=== PATIENT | female | born 1995 | race Two or more races ===

== ENCOUNTER 2019-04-11 10:51 | Emergency (ER) | payer OTHER ==
[~2019-04-11] VITALS: Ht 165.1 cm; Wt 65.8 kg
== END 2019-04-11 12:55 | disposition home or self-care (01) ==
LOC: ER 10:51
DX: S90.811A Abrasion, right foot, initial encounter (principal); W22.09XA Striking against other stationary object, initial encounter; Y93.01 Activity, walking, marching and hiking; Y92.89 Other specified places as the place of occurrence of the external cause; Y99.8 Other external cause status

== ENCOUNTER 2022-03-07 14:16 | Emergency (ER) | payer OTHER ==
[~2022-03-07] VITALS: Ht 165.1 cm; Wt 72.6 kg
[2022-03-07] MEDS ORDERED: AMOX-CLAV 875-1 EACH PO (18:07)
== END 2022-03-07 18:54 | disposition home or self-care (01) ==
LOC: ER 14:16
DX: J03.90 Acute tonsillitis, unspecified (principal); Z20.822 Contact with and (suspected) exposure to COVID-19

== ENCOUNTER 2023-12-16 17:53 | Emergency (ER) | payer OTHER ==
[~2023-12-16] VITALS: Ht 165.1 cm; Wt 70.3 kg
[~2023-12-16 17:53] MED LIST: AMOX-CLAV 875-1 EACH PO; NASAL MIST126 ML
[2023-12-16] MEDS ORDERED: KETOROLAC TROMETHAMINE 60 MG VIAL IM ONE (19:30)
[2023-12-16 19:56] LABS: PH,URINE 5.5 (5.0-8.0); URINE APPEARANCE Clear; URINE BILIRRUBIN Negative (NEGATIVE); URINE BLOOD Negative; URINE COLOR Yellow; URINE GLUCOSE Negative (NEGATIVE); URINE KETONE Negative (NEGATIVE); URINE LEUKOCYTE Negative; URINE NITRATE Negative; URINE PROTEIN Negative (NEGATIVE); URINE UROBILINOGEN 0.2 E.U./dl
[2023-12-16 19:58] LABS: HEMATOCRIT 36.9 % (36.0-45.00); HEMOGLOBIN 12.6 g/dL (12.0-15.00); MEAN CELL VOLUME 85.6 fL (80.00-100.00); MEAN CORPUSCULAR HEMOGLOBIN 29.1 pg (27.00-32.0); PLATELET COUNT 405 K/uL (150-450); RED BLOOD COUNT 4.31 M/uL (4.00-6.00); RED CELL DISTRIBUTION WIDTH 12.6 % (11.5-14.5)
[2023-12-16 20:00] LABS: URINE BACTERIA 1720.7 uL (0.0-1933); URINE EPITHELIAL CELLS 17.6 uL (0.0-38.8); URINE RBC 24.8 uL (0.0-20.8); URINE WBC 8.8 uL (0.0-23.2)
[2023-12-16 20:04] LABS: URINE CAST 0.15 uL (0.0-1.40)
[2023-12-16 20:44] LABS: ALT/SGPT 27 U/L (12-78); AMYLASE 64 U/L (25-115); AST/SGOT 21 U/L (15-37); LIPASE 44 U/L (13-75)
[2023-12-16 21:24] LABS: ALBUMIN 4.1 gm/dL (3.4-5.0); BILIRUBIN TOTAL 0.23 mg/dL (0.3-1.2); CALCIUM 9.5 mg/dL (8.5-10.1); CREATININE SERUM 0.79 mg/dL (0.55-1.02); GFR 86.04; GLOBULINA 4.3 G/DL (2.4-3.5); POTASSIUM 3.72 mEq/L (3.5-5.1); TOTAL PROTEIN 8.4 gm/dL (6.4-8.2)
[2023-12-17] MEDS ORDERED: MIRALAX510 GM PO (01:26)
[2023-12-17] MEDS ORDERED: LEVSIN/SL0.125 MG SL (01:26)
== END 2023-12-17 01:50 ==
LOC: ER 17:55
PROVIDERS: Preventive Medicine Public Health & General Preventive Medicine
DX: R10.11 Right upper quadrant pain (principal)
CPT/HCPCS: 36415; 74177; 76700; Q9965

== ENCOUNTER 2024-12-29 07:21 | Emergency (ER) | payer OTHER ==
[~2024-12-29] VITALS: Ht 165.1 cm; Wt 68.0 kg
[~2024-12-29 07:21] MED LIST changes: +LEVSIN/SL0.125 MG SL; +MIRALAX510 GM PO
[2024-12-29] MEDS ORDERED: KETOROLAC TROMETHAMINE 30 MG VIAL IU STA (08:50)
[2024-12-29] MEDS ORDERED: PROMETHAZINE HCL 25 MG/ML AMPUL IM STA (08:51)
[2024-12-29] MEDS ORDERED: 0.9 % SODIUM CHLORIDE 1,000 ML IV SCH (09:00)
[2024-12-29] MEDS ORDERED: PROMETHAZINE HCL 25 MG/ML AMPUL ONE (09:33)
[2024-12-29] MEDS ORDERED: KETOROLAC TROMETHAMINE 30 MG VIAL ONE (09:33)
[2024-12-29 09:41] LABS: BASO % 0.4 % (0.1-1.2); EOS # 0.03 (0.04-0.54); EOS % 0.6 % (0.7-7.0); LYMPH # 1.48 (1.18-3.74); LYMPH % 27.9 % (19.3-53.1); MEAN PLATELET VOLUME 9.60 fl (9.4-12.4); MONO # 0.36 (0.24-0.82); MONO % 6.8 % (4.7-12.5); NEUT # 3.40 (1.56-6.13); NEUT % 63.9 % (34.0-71.1); RED CELL DISTRIBUTION WIDTH 11.9 % (11.6-14.4)
[2024-12-29 09:54] LABS: URINE APPEARANCE Clear; URINE BILIRRUBIN Negative (NEGATIVE); URINE BLOOD Negative; URINE COLOR Yellow; URINE GLUCOSE Negative (NEGATIVE); URINE KETONE Negative (NEGATIVE); URINE LEUKOCYTE Trace; URINE NITRATE Negative; URINE PROTEIN Negative (NEGATIVE); URINE UROBILINOGEN 1.0 E.U./dl
[2024-12-29 09:59] LABS: URINE BACTERIA 893.7 uL (0.0-1933); URINE EPITHELIAL CELLS 26.1 uL (0.0-38.8); URINE RBC 4.5 uL (0.0-20.8); URINE WBC 5.5 uL (0.0-23.2)
[2024-12-29 10:09] LABS: ALT/SGPT 39 U/L (12-78); AST/SGOT 15 U/L (15-37); BILIRUBIN TOTAL 0.38 mg/dL (0.3-1.2); BUN CREA RATIO 14 (7.0-25.0); CREATININE SERUM 0.69 mg/dL (0.55-1.02); GFR 99.23; GLOBULINA 3.8 G/DL (2.4-3.5); GLUCOSE FASTING 87 mg/dL (65-100); OSMOLALITY SERUM 274 MOSM/KG (275-295)
[2024-12-29 10:34] LABS: URINE CAST 0.00 uL (0.0-1.40)
[2024-12-29] MEDS ORDERED: CEFTRIAXONE SODIUM 1,000 MG VIAL IM STA (12:05)
[2024-12-29] MEDS ORDERED: CIPRO500 MG PO (12:08)
[2024-12-29] MEDS ORDERED: [UNRECOGNIZED DRUG - OTHER] PO (12:08)
== END 2024-12-29 13:23 | disposition home or self-care (01) ==
LOC: ER 07:22
PROVIDERS: Physician Assistant Medical
DX: G43.909 Migraine, unspecified, not intractable, without status migrainosus (principal); N39.0 Urinary tract infection, site not specified